=== PATIENT | male | born 1980 | race Caucasian/White ===

== ENCOUNTER 2023-03-18 07:52 | Outpatient (RCR) | payer OTHER | END 2023-04-15 | disposition home or self-care (01) | LOC: PT | DX: M24.111 Other articular cartilage disorders, right shoulder (principal); M75.21 Bicipital tendinitis, right shoulder ==

== ENCOUNTER 2024-05-03 12:27 | Emergency (ER) | payer OTHER ==
[~2024-05-03] VITALS: Ht 177.8 cm; Wt 100.0 kg
[2024-05-03] MEDS ORDERED: Tdap Vaccine 0.5 ML SYRINGE IM ONE (13:00)
[2024-05-03] MEDS ORDERED: Lidocaine/EPINEPHrine/Tetracaine Topical Gel 3 ML SYRINGE TOP ONE (13:00)
[2024-05-03] MEDS ORDERED: AMLODIPINE-OLM1 EACH PO (13:02)
[2024-05-03] MEDS ORDERED: NORCO 325 MG-51 TA1 PO (13:57)
[2024-05-03 14:11] VITALS: BP 152/89
== END 2024-05-03 14:11 | disposition home or self-care (01) ==
LOC: ED 12:27
DX: S81.812A Laceration without foreign body, left lower leg, initial encounter (principal); E66.9 Obesity, unspecified; F17.290 Nicotine dependence, other tobacco product, uncomplicated; Z23 Encounter for immunization; Z68.31 Body mass index [BMI] 31.0-31.9, adult; W20.8XXA Other cause of strike by thrown, projected or falling object, initial encounter; Y93.E1 Activity, personal bathing and showering; Y92.002 Bathroom of unspecified non-institutional (private) residence as the place of occurrence of the external cause
CPT/HCPCS: 90715